=== PATIENT | male | born 1950 | race Caucasian/White ===

== ENCOUNTER 2021-06-23 08:05 | Observation (INO) | payer MEDICARE ==
[2021-06-22 09:40] LABS: BASOPHILS # (AUTO) 0.1 (0.0-0.1); BASOPHILS % 0.7 % (0.0-1.0); EOSINOPHILS # (AUTO) 0.1 (0.0-0.4); EOSINOPHILS % 1.7 % (0.0-6.0); HEMATOCRIT 53.2 % (38.2-49.6); LYMPHOCYTES # (AUTO) 1.9 (1.0-3.2); LYMPHOCYTES % 22.1 % (18.0-39.1); MEAN CORPUSCULAR HGB CONC 33.8 g/dL (31-35); MEAN CORPUSCULAR VOLUME 94.7 fL (81-99); MONOCYTES # (AUTO) 0.7 (0.2-0.8); MONOCYTES % 7.8 % (4.4-11.3); NEUTROPHILS # (AUTO) 5.7 (2.1-6.9); NEUTROPHILS % 67.6 % (38.7-80.0); PLATELET COUNT 200 x10e3/uL (140-360); RED BLOOD COUNT 5.62 x10e6/uL (4.3-5.7); RED CELL DISTRIBUTION WIDTH 14.3 % (11.7-14.4)
[2021-06-22 09:56] LABS: INR 0.96; PROTHROMBIN TIME 13.7 seconds (11.9-14.5)
[2021-06-22 09:57] LABS: PARTIAL THROMBOPLASTIN TIME 28.6 seconds (23.8-35.5)
[2021-06-22 10:09] LABS: ANION GAP 11.9 mmol/L (8-16); CALCIUM 10.2 mg/dL (8.4-10.2); CREATININE, SERUM 1.18 mg/dL (0.72-1.25); POTASSIUM 4.9 mmol/L (3.5-5.1)
[~2021-06-23] VITALS: Ht 180.3 cm; Wt 56.7 kg
[~2021-06-23 08:05] MED LIST: AMITIZA24 MCG PO; GABAPENTIN300 MG PO; HYDROCHLOROTHIA25 MG PO; LEVOTHYROXINE50 MCG PO; MELOXICAM7.5 MG PO; METFORMIN HCL500 M2 PO; OXYCODONE-ACET1 EAC3 PO; SERTRALINE HCL50 MG PO; SIMVASTATIN40 MG PO; SODIUM CHLORIDE 0.9% 50ML 100 ML ONE; TRICOR48 MG PO; XTAMPZA ER18 MG PO; ZESTRIL10 MG PO; ZOLPIDEM TARTRAT5 MG PO
[2021-06-23] MEDS ORDERED: Vancomycin IV 1 GM VIAL ONE (09:01)
[2021-06-23] MEDS ORDERED: LIDOCAINE 2% /EPINEPHRINE 20 ML SDV INJ ONE (09:01)
[2021-06-23] MEDS ORDERED: MORPHINE SULFATE 5 MG/ML VIAL IM PRN (11:30)
[2021-06-23] MEDS ORDERED: ZOLPIDEM TARTRATE 5 MG TAB PO PRN (11:30)
[2021-06-23] MEDS ORDERED: ACETAMINOPHEN 325 MG TAB PO PRN (11:30)
[2021-06-23] MEDS ORDERED: CARISOPRODOL 350 MG TAB PO PRN (11:30)
[2021-06-23] MEDS ORDERED: PROMETHAZINE HCL (IM) 25 MG/ML VIAL IM PRN (11:30)
[2021-06-23] MEDS ORDERED: MAGNESIUM/ALUMINUM/SIMETHICONE 30 ML UDC PO PRN (11:30)
[2021-06-23] MEDS ORDERED: ONDANSETRON HCL INJ 2MG/ML 2ML 2 MG/ML VIAL IV PRN (11:30)
[2021-06-23] MEDS ORDERED: MELOXICAM 7.5 MG TAB PO PRN (11:30)
[2021-06-23] MEDS ORDERED: FENTANYL CITRATE/PF 100MCG/2 ML INJ ONE ×2 (11:40→12:22)
[2021-06-23] MEDS ORDERED: NON-FORMULARY MEDICATION (Oxycodone Hcl/Acetaminophen (Oxycodone-Acetaminophen 10-325) 1 T PO SCH (12:00)
[2021-06-23] MEDS ORDERED: ONDANSETRON HCL INJ 2MG/ML 2ML 2 MG/ML VIAL ONE (12:04)
[2021-06-23] MEDS ORDERED: DEXAMETHASONE SOD PHOS INJ 4 MG/ML SDV ONE (12:04)
[2021-06-23] MEDS ORDERED: LIDOCAINE HCL 2% LOCAL INJ 5 ML SDV VIAL INJ ONE (12:04)
[2021-06-23] MEDS ORDERED: ACETAMINOPHEN 1000 MG/100 ML IV ONE (12:04)
[2021-06-23] MEDS ORDERED: ROCURONIUM BROMIDE 10 MG/ML 5ML VIAL IV ONE (12:04)
[2021-06-23] MEDS ORDERED: PROPOFOL IV EMULSION 10 MG/ML 20 ML VIAL ONE (12:04)
[2021-06-23] MEDS ORDERED: POVIDONE IODINE 0.05% 0.05 % ML PO ONE (12:04)
[2021-06-23] MEDS ORDERED: SEVOFLURANE INHAL SOLN 250 ML PEN BTL ONE (12:04)
[2021-06-23] MEDS ORDERED: MIDAZOLAM HCL 2 MG/2 ML VIAL ONE (12:22)
[2021-06-23] MEDS ORDERED: HYDROMORPHONE 1MG/1ML INJ ONE (13:15)
[2021-06-23] MEDS ORDERED: SODIUM CHLORIDE 0.9% 50ML 50 ML ONE (13:49)
[2021-06-23] MEDS: Cefazolin 1 GM in SODIUM CHLORIDE 0.9% 50ML 50 ML IV SCH ×2 (14:00→22:18)
[2021-06-23] MEDS ORDERED: LACTATED RINGER'S 1,000 ML ONE (15:03)
[2021-06-23] MEDS: LACTATED RINGER'S 1,000 ML IV SCH ×2 (15:24→22:18)
[2021-06-23] MEDS: GABAPENTIN 300 MG CAP PO SCH ×2 (15:25→22:05)
[2021-06-23 15:26] VITALS: BP 126/61
[2021-06-23] MEDS ORDERED: OXYCODONE/ACETAMINOPHEN 5-325 1 EACH TABLET PO PRN (15:30)
[2021-06-23 15:31] VITALS: BP 126/61
[2021-06-23 15:32] VITALS: BP 118/66
[2021-06-23] MEDS: HYDROMORPHONE 2MG/ML 2 MG/ML ML IV PRN (15:37)
[2021-06-23] MEDS ORDERED: METFORMIN HCL 500 MG TAB CR PO SCH (17:00)
[2021-06-23] MEDS ORDERED: LUBIPROSTONE 24 MCG CAP PO SCH (17:00)
[2021-06-23 20:00] VITALS: BP 108/58
[2021-06-23 21:00] VITALS: BP 108/58
[2021-06-23] MEDS ORDERED: OXYCODONE MYRISTATE 18 MG PO SCH (21:00)
[2021-06-23] MEDS ORDERED: ZOLPIDEM TARTRATE 10 MG TAB PO SCH (21:00)
[2021-06-23] MEDS ORDERED: SIMVASTATIN 40 MG TAB PO SCH (21:00)
[2021-06-24] VITALS: BP 114/60
[2021-06-24] MEDS: HYDROMORPHONE 2MG/ML 2 MG/ML ML IV PRN (03:52)
[2021-06-24 04:00] VITALS: BP 103/53
[2021-06-24] MEDS: LACTATED RINGER'S 1,000 ML IV SCH (04:10)
[2021-06-24] MEDS ORDERED: LEVOTHYROXINE SODIUM 50 MCG TAB PO SCH (06:00)
[2021-06-24] MEDS: Cefazolin 1 GM in SODIUM CHLORIDE 0.9% 50ML 50 ML IV SCH (06:51)
[2021-06-24 07:56] VITALS: BP 111/59
[2021-06-24 08:26] VITALS: BP 111/59
[2021-06-24] MEDS ORDERED: SERTRALINE HCL 50 MG TAB PO SCH (09:00)
[2021-06-24] MEDS ORDERED: FENOFIBRATE 48 MG TAB PO SCH (09:00)
[2021-06-24] MEDS ORDERED: HYDROCHLOROTHIAZIDE 25 MG TAB PO SCH (09:00)
[2021-06-24] MEDS ORDERED: LISINOPRIL 20 MG TAB PO SCH (09:00)
== END 2021-06-24 09:05 | disposition home or self-care (01) ==
LOC: OR 08:05 → PACU V 11:22 → MED/SURG3 14:47
PROVIDERS: ADMIT Neurological Surgery; ATTEND Neurological Surgery
DX: M48.062 Spinal stenosis, lumbar region with neurogenic claudication (principal); E78.5 Hyperlipidemia, unspecified; I10 Essential (primary) hypertension; E11.9 Type 2 diabetes mellitus without complications; Z88.8 Allergy status to other drugs, medicaments and biological substances; Z01.810 Encounter for preprocedural cardiovascular examination; Z01.812 Encounter for preprocedural laboratory examination; Z01.818 Encounter for other preprocedural examination; Z20.822 Contact with and (suspected) exposure to COVID-19; Z79.84 Long term (current) use of oral hypoglycemic drugs
CPT/HCPCS: 36415 ×2; 63047; 63048; 71046; 72020; 80048; 82948; 85025; 85610; 85730; 86850; 86900; 88304; 88311; 93005; G0378 ×2; J0131; J0690 ×2; J1100; J1170 ×3; J2001 ×2; J2250; J2405; J2704; J3010; J3370; J7121; U0002